=== PATIENT | male | born 1985 | race African-American/Black ===

== ENCOUNTER 2021-12-29 19:23 | Emergency (ER) | payer OTHER, SELFPAY ==
--- NOTE | 2021-12-29 19:25 | ED.GENADULT ---
HPI - General Adult General Chief complaint: Upper Respiratory Infection Stated complaint: HEADACHE/SWEATING/COLD/CONGESTION Time Seen by Provider: 12/29/21 19:24 Source: patient Mode of arrival: ambulatory Limitations: no limitations History of Present Illness HPI narrative: 36-year-old male patient presents to the [facility] with complaints of chills, hot flashes, runny nose, nausea, diarrhea, headache and just overall not feeling well that started today. Patient states his runny nose started about 6 to 10 days ago but has been taking [id number] allergy medications but today symptoms got worse. Patient states he is vaccinated against COVID but denies getting an influenza shot this year. Denies chest pain or shortness of breath at this time. Patient states that he does smoke marijuana and occasional cigarette. Related Data Home Medications Medication Instructions Recorded Confirmed No Home Medications 12/29/21 12/29/21 Allergies Allergy/AdvReac Type Severity Reaction Status Date / Time No Known Allergies Allergy Verified 12/29/21 19:42 Review of Systems Review of Systems: CONSTITUTIONAL: Positive fever, chills, and sweats. EYES: Denies visual changes, redness, or discharge. ENT: Positive rhinorrhea, congestion, denies sore throat, or otalgia. CARDIOVASCULAR: Denies chest pain, palpitations, or edema. RESPIRATORY: Denies cough or dyspnea. GASTROINTESTINAL: Denies abdominal pain, positive nausea, denies vomiting, positive diarrhea. GENITOURINARY: Denies dysuria or hematuria. SKIN: Denies rash or itching. MUSCULOSKELETAL: Denies back pain, joint pain, or myalgia. NEUROLOGIC: Positive headache, denies numbness, or weakness. PSYCHIATRIC: Denies anxiety or depression. [facility] Past Medical History Medical History (Updated 12/29/21 @ 20:13 by UDAY Peters) Community acquired pneumonia Diabetes Comments At the time of my signature I agree with nursing past medical history, surgical, social, and family history. There is no relevant family history pertinent to the presenting complaint. Exam Narrative: GENERAL: Well-appearing, well-nourished, and in no acute distress. HEAD: Normocephalic, atraumatic. EYES: PERRLA and EOMI. ENT: Nares with erythema and edema noted to the left nare, no rhinorrhea or epistaxis. Mucous membranes moist. Posterior pharynx with no erythema, tonsillar lodgment, exudates or lesions present. NECK: Supple. No lymphadenopathy CHEST: Clear to auscultation. No respiratory distress. Patient able talk in clear complete sentences. HEART: Regular rate and rhythm. No murmur heard. Normal peripheral pulses. ABDOMEN: Soft, nontender, nondistended, normal active bowel sounds. EXTREMITIES: Normal range of motion. No edema. SKIN: Warm, dry, no rash. NEURO: No focal deficits. Alert and oriented x3. Course Course Level of Care: Express Care Visit Reevaluation(s) Reevaluation #1: Reevaluated patient notified him the his COVID and flu test were both negative today. Discussed with him he most likely does have some sort of virus but he is can have to let it run its course he can continue taking [id number] medications to help the symptoms. Discussed with patient he can take [id number] Tylenol Motrin to help with the chills, body aches and any fevers. Benadryl to help him sleep and increase his fluids. Patient verbalized understanding denies any other questions or concerns at this time. Date: 12/29/21 Time: 20:14 Vital Signs Vital signs: Vital Signs Temperature 36.6 C 12/29/21 19:35 Pulse Rate 89 12/29/21 19:35 Respiratory Rate 16 12/29/21 19:35 Blood Pressure 117/82 12/29/21 19:35 Pulse Oximetry 99 12/29/21 19:35 Temperature 36.6 C 12/29/21 19:35 Pulse Rate 89 12/29/21 19:35 Respiratory Rate 16 12/29/21 19:35 Blood Pressure 117/82 12/29/21 19:35 Pulse Oximetry 99 12/29/21 19:35 Vital signs reviewed Medical Decision Making Differential Diag
[2021-12-29 19:35] VITALS: BP 117/82; PULSE 89; RESP 16; TEMP 36.6; O2SAT 99
== END 2021-12-29 20:16 | disposition home or self-care (01) ==
PROVIDERS: Emergency Provider Nurse Practitioner Family
DX: J06.9 Acute upper respiratory infection, unspecified (principal); Z20.822 Contact with and (suspected) exposure to COVID-19; E11.9 Type 2 diabetes mellitus without complications; F12.90 Cannabis use, unspecified, uncomplicated; Z72.0 Tobacco use
CPT/HCPCS: 87426; 87804; 99203; C9803; G0463

== ENCOUNTER 2022-04-27 18:05 | Emergency (ER) | payer MEDICAID, SELFPAY ==
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
[2022-04-27 18:13] VITALS: BP 109/73; PULSE 68; TEMP 37.1; O2SAT 100
[2022-04-27 18:22] VITALS: O2SAT 98
--- NOTE | 2022-04-27 18:25 | ECG_ITS ---
Measurements Intervals [place] Rate: 60 P: 23 DC: 137 QRS: 21 QRSD: 105 T: 16 QT: 388 QTc: 389 Interpretive Statements SINUS RHYTHM NORMAL ECG NO PREVIOUS ECG AVAILABLE FOR COMPARISON Electronically Signed On 04-27-2022 21:37:27 CDT by Cj Oliveira D.O.
[2022-04-27 18:26] VITALS: PULSE 67
--- NOTE | 2022-04-27 18:26 | ED.CHESTPAIN ---
HPI - Chest Pain General Chief Complaint: Chest Pain Stated Complaint: chest pain Time Seen by Provider: 04/27/22 18:16 History of Present Illness HPI narrative: Patient is a 37-year-old male here for evaluation of chest pain. Patient states the chest pain is present along his left pectoralis muscle, and has been present for about 5 weeks. The pain is intermittent in nature, seems to come on in stressful periods of his life. Feels like a soreness . He presents today because the pain has gotten worse but also thinks it may be due to anxiety. Patient has smoked marijuana for his pain but has not attempted any oral medications. He denies recent increased exertion/activity recently. No shortness of breath, cough, fever, chills, abdominal pain, nausea, vomiting, diaphoresis, calf pain or swelling. He has no cardiac history or family history of cardiac events. Related Data Home Medications Medication Instructions Recorded Confirmed No Home Medications 12/29/21 12/29/21 Allergies Allergy/AdvReac Type Severity Reaction Status Date / Time No Known Allergies Allergy Verified 04/27/22 18:29 Review of Systems Review of Systems: Gen.: Denies fevers or chills Eyes: Denies eye pain or visual change ENT: Denies congestion Respiratory: Denies shortness of breath or cough CV: Reports chest pain. GI: Denies abdominal pain nausea, emesis or diarrhea denies burning, urgency, frequency or hematuria Musculoskeletal: Denies back pain or muscle pain Neuro: Denies numbness, tingling, weakness or focal weakness Skin: Denies rash Except as documented, all other systems reviewed and negative PMFSH Past Medical History Medical History Community acquired pneumonia Diabetes Exam Narrative: APPEARANCE: Well appearing, no pain in distress, well-nourished Head: Normocephalic and atraumatic. EYES: PERRLA/EOMI, conjunctivae clear NOSE: No nasal drainage EARS: External ear normal in appearance THROAT: Oropharynx is clear. Mucous membranes are moist. NECK: Supple. No adenopathy, no masses. RESPIRATORY: Airway patent, respirations nonlabored. Clear to auscultation bilaterally, no rales, rhonchi, wheezing. CARDIOVASCULAR: Regular rate and rhythm without murmurs, rubs, or gallops. ABDOMINAL: Normoactive bowel sounds. Soft, nontender, nondistended. No rebound tenderness or guarding. MUSCULOSKELETAL: No reproducible chest pain on palpation of chest wall. Extremities are warm and well-perfused. Moves all extremities well. No edema. NEURO: Normal speech. No focal neurologic deficits. SKIN: Skin is warm and dry. No rashes. PSYCHIATRIC: Normal affect/mood. Course Vital Signs Vital signs: Vital Signs Temperature 98.7 F 04/27/22 18:13 Pulse Rate 68 04/27/22 18:13 Blood Pressure 109/73 04/27/22 18:13 Pulse Oximetry 100 04/27/22 18:13 Temperature 98.7 F 04/27/22 18:13 Pulse Rate 62 04/27/22 19:10 Respiratory Rate 25 H 04/27/22 19:10 Blood Pressure 117/67 04/27/22 19:10 Pulse Oximetry 97 04/27/22 19:10 Oxygen Delivery Room Air 04/27/22 18:28 MDM - Chest Pain MDM Narrative Medical decision making narrative: 37-year-old male here for evaluation of left-sided chest pain for the past 5 weeks has been intermittent in nature. Here he is nontoxic-appearing with normal vital signs. Patient's pain was completely alleviated after ibuprofen in the ED, possibly MSK in nature. Exam without evidence of volume overload so doubt heart failure. EKG without signs of active ischemia. Given the timing of pain to ER presentation, single troponin was negative so doubt NSTEMI. Presentation not consistent with acute PE (Wells low risk, PERC negative, no dimer indicated at this time),pneumothorax (not visualized on chest xr), thoracic aortic dissection, pericarditis, tamponade, pneumonia (no infectious symptoms, clear chest xr), myocarditis (no recent illness, neg
[2022-04-27 18:28] VITALS: O2SAT 98
[2022-04-27] MEDS: IBUPROFEN 600 MG TABLET PO (18:33)
[2022-04-27 18:53] LABS: Basophils Percent Auto 0.4 % (0.2-1.2); Eosinophils Absolute Auto 0.3 K/mm3 (0-0.3); Eosinophils Percent Auto 2.6 % (0-4.4); Hematocrit 41.2 % (42.0-52.0); Hemoglobin 13.9 g/dL (14.0-18.0); Immature Granulocyte Absolute 0.03 K/mm3 (0.00-0.031); Immature Granulocyte Percent A 0.3 % (0-0.5); Lymphocytes Absolute Auto 3.37 K/mm3 (0.9-3.2); Lymphocytes Percent Auto 31.3 % (18.3-44.2); Mean Corpuscular HGB Conc 33.7 g/dl (32-36); Mean Corpuscular Hemoglobin 30.8 pg (26-34); Mean Corpuscular Volume 91.2 fl (80-100); Mean Platelet Volume 9.6 fl (7.4-10.4); Monocytes Absolute Auto 0.9 K/mm3 (0.1-0.6); Monocytes Percent Auto 7.9 % (2.6-8.5); Neutrophils Absolute Auto 6.2 K/mm3 (1.3-6.7); Neutrophils Percent Auto 57.5 % (45.5-73.1); Platelet Count Result 289 k/mm3 (150-375); Red Blood Count 4.52 M/mm3 (4.6-6.20); Red Cell Distribution Width 13.1 % (11.5-14.5); White Blood Count 10.8 K/mm3 (4.5-10.0)
[2022-04-27 19:10] VITALS: BP 117/67; PULSE 62; RESP 25; O2SAT 97
[2022-04-27 19:19] LABS: Alanine Aminotransferase 22 U/L (6-50); Albumin Level 3.6 g/dL (3.5-5.1); Alkaline Phosphatase 68 U/L (38-126); Anion Gap 9 mmol/L (8-16); Aspartate Amino Transferase 29 U/L (17-59); Bilirubin,Total 0.3 mg/dL (0.2-1.3); Blood Urea Nitrogen 7 mg/dL (9-20); Calcium 8.3 mg/dL (8.4-10.2); Carbon Dioxide 22 mmol/L (22-30); Chloride 107 mmol/L (98-107); Estimated CRCL calculation 115 ml/min; Estimated Glomerular Filt Rate > 60; Glucose 131 mg/dL (65-110); Lipase 81 U/L (23-300); Potassium 3.5 mmol/L (3.4-5.0); Sodium 138 mmol/L (137-145); Troponin I < 0.012 ng/mL (0.000-0.034)
== END 2022-04-27 19:35 | disposition home or self-care (01) ==
PROVIDERS: Physician Assistant; Emergency Provider Emergency Medicine
DX: R07.89 Other chest pain (principal); F12.90 Cannabis use, unspecified, uncomplicated
CPT/HCPCS: 36415; 71046; 80053; 83690; 84484; 85025; 93005; 99284; A9270

== ENCOUNTER 2022-06-18 16:01 | Emergency (ER) | payer MEDICAID, SELFPAY ==
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
[2022-06-18 16:40] VITALS: BP 114/75; PULSE 65; RESP 14; TEMP 36.8; O2SAT 100
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
== END 2022-06-19 03:06 | disposition home or self-care (01) ==
PROVIDERS: Emergency Provider Nurse Practitioner Family
DX: S93.601A Unspecified sprain of right foot, initial encounter (principal); E11.9 Type 2 diabetes mellitus without complications; Z87.01 Personal history of pneumonia (recurrent); X50.9XXA Other and unspecified overexertion or strenuous movements or postures, initial encounter
CPT/HCPCS: 73630; 99283